=== PATIENT | female | born 1990 | race African-American/Black ===

== ENCOUNTER 2021-02-06 22:54 | Inpatient (IN) | payer OTHER, SELFPAY ==
[~2021-02-06] VITALS: Ht 165.1 cm; Wt 68.0 kg
[2021-02-07 00:13] VITALS: BP 126/91
[2021-02-07] MEDS ORDERED: METHYLERGONOVINE 0.2 MG/ML AMP IM PRN (00:30)
[2021-02-07] MEDS ORDERED: OXYTOCIN 20 UNITS in LACTATED RINGERS 1,000 ML IV PRN (00:30)
[2021-02-07 01:23] LABS: BASOPHILS % (AUTO) 0.4 % (0.0-2.0); EOSINOPHILS # (AUTO) 0.1 K/uL (0-0.4); EOSINOPHILS % (AUTO) 0.7 % (0.0-4.0); HEMATOCRIT 39.3 % (36-48); LYMPHOCYTES # (AUTO) 2.5 K/uL (2.5-16.5); LYMPHOCYTES % (AUTO) 23.4 % (20.5-51.1); MEAN CORPUSCULAR HEMOGLOBIN 30 pg (27-31); MEAN CORPUSCULAR HGB CONC 33 g/dL (33-37); MEAN CORPUSCULAR VOLUME 90.2 fL (80-94); MONOCYTES # (AUTO) 0.7 K/uL (0.8-1.0); MONOCYTES % (AUTO) 6.2 % (1.7-9.3); NEUTROPHILS # (AUTO) 7.5 K/uL (1.8-7.7); NEUTROPHILS % (AUTO) 69.3 % (42.2-75.2); PLATELET COUNT (AUTO) 165 K/uL (140-450); RED BLOOD CELL COUNT(AUTO) 4.35 MIL/uL (4.20-5.40); RED CELL DISTRIBUTION WIDTH 14.3 % (11.6-13.7); WHITE BLOOD COUNT (AUTO) 10.8 K/uL (4.8-10.8)
[2021-02-07 01:27] LABS: APPEARANCE,URINE CLEAR (CLEAR); BILIRUBIN,URINE NEGATIVE (NEGATIVE); BLOOD, URINE NEGATIVE (NEGATIVE); COLOR,URINE YELLOW (YELLOW); LEUKOCYTE ESTERASE ,URINE NEGATIVE (NEGATIVE); NITRITE, URINE NEGATIVE (NEGATIVE); UGLUCOSE NEGATIVE (NEGATIVE)
[2021-02-07 01:41] LABS: RBC,URINE 0-5 /HPF (0-5); WBC,URINE 0-5 /HPF (0-5)
[2021-02-07 01:44] LABS: ALBUMIN 2.9 g/dL (3.4-5.0); ANION GAP 14.9 (8-16); CREATININE 0.7 mg/dL (0.6-1.3); POTASSIUM 3.9 mmol/L (3.5-5.1); TOTAL BILIRUBIN 0.2 mg/dL (0.0-1.0)
[2021-02-07 02:07] LABS: URINE TOTAL PROTEIN 18.8 mg/dL (0-12)
[2021-02-07] MEDS: MISOPROSTOL 25 MCG TAB VG PRN ×2 (02:32→09:32)
--- NOTE | 2021-02-07 07:59 | NUR ---
PATIENT HAS BEEN SCREENED AND CATEGORIZED LOW NUTRITION RISK. PATIENT WILL BE SEEN WITHIN 7 DAYS OF ADMISSION. 02/11/[address]
[2021-02-07] MEDS: LACTATED RINGERS 1,000 ML IV SCH ×2 (08:30→13:31)
[2021-02-07] MEDS ORDERED: fentaNYL citrate 0.05 MG/ML VIAL ONE (13:33)
[2021-02-07] MEDS ORDERED: ROPIVACAINE 0.2%/NS PREMIX 200 ML EPI ONE (13:33)
[2021-02-07] MEDS ORDERED: OXYTOCIN 20 UNITS/LR PREMIX 1,000 ML IV ONE (16:18)
[2021-02-07] MEDS ORDERED: IBUPROFEN 800 MG TAB PO PRN (16:55)
[2021-02-07] MEDS ORDERED: OXYTOCIN 10 UNITS/ML VIAL IM PRN (16:55)
[2021-02-07] MEDS ORDERED: SIMETHICONE 80 MG TAB.CHEW PO PRN (16:55)
[2021-02-07] MEDS ORDERED: BENZOCAINE/MENTHOL 20%-0.5% 60 GM CAN TP PRN (16:55)
[2021-02-07] MEDS ORDERED: DOCUSATE SODIUM 100 MG GELCAP PO PRN (16:55)
[2021-02-07] MEDS ORDERED: bisacodyL 5 MG TABEC PO PRN (16:55)
[2021-02-07] MEDS ORDERED: MEASLES, MUMPS, AND RUBELLA 1 VIAL SQVAC ONE (16:55)
[2021-02-08] MEDS: IBUPROFEN 600 MG TAB PO PRN ×2 (09:22→20:33)
[2021-02-08 11:05] LABS: HEMATOCRIT 34.7 % (36-48); HEMOGLOBIN 11.3 g/dL (12.0-16.0)
== END 2021-02-09 13:50 | disposition home or self-care (01) | DRG 807 ==
LOC: MLD 22:54 → MFCC 02-07 20:15
PROVIDERS: ADMIT Obstetrics & Gynecology; ATTEND Obstetrics & Gynecology
PROC: 10E0XZZ Delivery of Products of Conception, External Approach (ICD-10-PCS; principal; 2021-02-07)
PROC: 0KQM0ZZ Repair Perineum Muscle, Open Approach (ICD-10-PCS; 2021-02-07)
PROC: 3E0DXGC Introduction of Other Therapeutic Substance into Mouth and Pharynx, External Approach (ICD-10-PCS; 2021-02-07)
PROC: 3E0R3BZ Introduction of Anesthetic Agent into Spinal Canal, Percutaneous Approach (ICD-10-PCS; 2021-02-07)
PROC: 00HU33Z Insertion of Infusion Device into Spinal Canal, Percutaneous Approach (ICD-10-PCS; 2021-02-07)
DX: O36.5930 Maternal care for other known or suspected poor fetal growth, third trimester, not applicable or unspecified (principal); Z37.0 Single live birth; O13.4 Gestational [pregnancy-induced] hypertension without significant proteinuria, complicating childbirth; O69.81X0 Labor and delivery complicated by cord around neck, without compression, not applicable or unspecified; O99.62 Diseases of the digestive system complicating childbirth; K21.9 Gastro-esophageal reflux disease without esophagitis; O70.1 Second degree perineal laceration during delivery; Z20.822 Contact with and (suspected) exposure to COVID-19; Z3A.37 37 weeks gestation of pregnancy
CPT/HCPCS: 36415; 51702; 59200; 59409; 76815; 80053; 81001; 82570; 85018; 85025; 86592; 86886; 86900; 86901; 88307; 90715; J2590; J2795; J3010; Q0092